=== PATIENT | male | born 1950 | race Caucasian/White ===

== ENCOUNTER 2017-07-01 18:27 | Emergency (ER) | payer OTHER ==
[~2017-07-01] VITALS: Ht 174 cm; Wt 128.6 kg
[~2017-07-01 18:27] MED LIST: ALLO100T57 PO; ASPCH81X NG; ATOR-24 PO; CITA40TA4 PO; CLOP1TAB5 PO; CRD200 PO; EFF/375 PO; HYDR-4715 PO; INSUINJ4 SC; METO1TAB66 PO; NVLGI SC; PRLSR20 PO
[2017-07-01 18:35] VITALS: TEMP 36.5; Ht 174 cm; Wt 128.6 kg
--- NOTE | 2017-07-01 19:57 | EMERGENCY ROOM VISIT NOTE ---
History Report prepared by Lluvia: Gm Ruth Under the Supervision of: Dr. Farida Alejandro D.O. First contact with patient: 19:13 Chief Complaint: HYPERGLYCEMIA Stated Complaint: HIGH SUGAR Nursing Triage Summary: "I'm not steady on my feet and my sugar is out of wack. My sugar was 214 an hour ago." per pt. History of Present Illness The patient is a 66 year old male who presents to the Emergency Room with complaints of intermittent hyperglycemia occurring for about a month. The patient was feeling woozy, and he checked his blood sugar, and it was 214 about an hour ago. He states that it then went down to 184. He states that sometimes his blood sugar occasionally gets up to 400s, and he states that he might be cheating on his diabetic diet. The patient states that he takes insulin shots for type 2 diabetes. He additionally states that he got a pneumonia shot today in the doctors office, and they did not check his sugars. The patient additionally states that he has COPD, and he wears a mask to sleep. He additionally states that next Tuesday he is going to be getting a breathing test and CT scan for a lung infection. The patient states that he has not been coughing up very much, and he states that a couple days ago he was having some chest pain. The patient also states that he has abdominal pain, and he is having leg swelling. Pt denies headache, change in vision, fevers, shortness of breath, nausea, vomiting, diarrhea, pain with urination, and melena. Source of History: patient Onset: a month Position: other (global) Quality: other (intermittent) Timing: intermittent Associated Symptoms: + chest pain, + abdominal pain Review of Systems See HPI for pertinent positives & negatives. A total of 10 systems reviewed and were otherwise negative. Past Medical & Surgical Medical Problems: (1) Diabetes (2) Hypertension Social History Smoking Status: Never Smoker Drug Use: other Marital Status: in relationship Current/Historical Medications Scheduled Allopurinol (Zyloprim), 100 MG PO UD Aspirin (Aspirin Chewable), 81 MG NG QAM Atorvastatin (Lipitor), 80 MG PO QAM Citalopram Hydrobromide (Citalopram Hydrobromide), 40 MG PO DAILY Clopidogrel Bisulfate (Plavix), 75 MG PO QAM Hydralazine Hcl (Apresoline), 10 MG PO TID Insulin Aspart (Novolog), 0 SC AC Insulin Glargine (Lantus Solostar Pen), 35 UNIT SC QAM Insulin Glargine (Lantus Solostar Pen), 20 UNIT SC PM Metoprolol Succinate (Toprol Xl), 200 MG PO DAILY Omeprazole (Prilosec), 20 MG PO DAILY Venlafaxine Hcl (Effexor), 37.5 MG PO DAILY [Spr328], 400 MG PO DAILY Allergies Coded Allergies: Morphine (Verified Adverse Reaction, Unknown, INTOLERANCE - UNCLEAR RXN, ) No Known Allergies (Verified , NONE, 03/04/09) Physical Exam Vital Signs Date Time Temp Pulse Resp B/P (MAP) Pulse Ox O2 Delivery O2 Flow Rate FiO2 07/02/17 00:24 74 20 182/105 94 07/01/17 23:32 70 20 175/105 93 Room Air 07/01/17 22:26 72 18 182/93 95 Room Air 72 159/93 74 182/89 07/01/17 20:24 71 18 167/81 94 07/01/17 18:35 36.5 73 20 185/97 94 Room Air Physical Exam GENERAL: alert, well appearing, well nourished, no distress, non-toxic EYE EXAM: normal conjunctiva, PERRL and EOM's grossly intact OROPHARYNX: no exudate, no erythema, lips, buccal mucosa, and tongue normal and mucous membranes are dry NECK: supple, no nuchal rigidity, no adenopathy, non-tender LUNGS: Clear to auscultation. Normal chest wall mechanics HEART: no murmurs, S1 normal and S2 normal ABDOMEN: obese abdomen soft, non-tender, normo-active bowel sounds, no masses, no rebound or guarding. BACK: Back is symmetrical on inspection and there is no deformity, no midline tenderness, no CVA tenderness. SKIN: no rashes and no bruising UPPER EXTREMITIES: upper extremities are grossly normal. LOWER EXTREMITIES: 1+ bilateral lower extremity edema. NEURO EXAM: Normal sensorium, cranial nerves II-XII grossly intact, normal speech, no gross weakness of arms, no gross weakness of legs. Gross sensation intact. Medical Decision & Procedures ER Provider Diagnostic Interpretation: Radiology results have been interpreted by the radiologist and reviewed by me. CHEST ONE VIEW PORTABLE CLINICAL HISTORY: cough, chest pain COMPARISON STUDY: 11/08/2013 FINDINGS: Moderate cardiomegaly. Median sternotomy. Chronic elevation right hemidiaphragm. Mild atelectasis right base. IMPRESSION: Moderate cardiomegaly. Mild atelectasis right base. The above report was generated using voice recognition software. It may contain grammatical, syntax or spelling errors. Electronically signed by: Adebayo Dia M.D. 07/01/2017 8:15 PM Dictated Date/Time: 07/01/2017 8:14 PM HEAD WITHOUT CONTRAST (CT) CT DOSE: 614.27 mGy.cm HISTORY: Mental status change weakness TECHNIQUE: Multiaxial CT images of the head were performed without the use of intravenous contrast. A dose lowering technique was utilized adhering to the principles of ALARA. Comparison: None. Findings: The paranasal sinuses and mastoid air cells are clear. The calvarium and skull base are intact. The ventricles and sulci are within normal limits. There is no mass, hematoma, midline shift, or acute infarct. Mild age-related atrophy and chronic small vessel change Impression: No acute intracranial abnormality. The above report was generated using voice recognition software. It may contain grammatical, syntax or spelling errors. Electronically signed by: Adebayo Dia M.D. 07/01/2017 10:25 PM Dictated Date/Time: 07/01/2017 10:25 PM Laboratory Results 07/01/17 20:04 Red Blood Count 4.62, Mean Corpuscular Volume 90.0, Mean Corpuscular Hemoglobin 29.9, Mean Corpuscular Hemoglobin Concent 33.2, Mean Platelet Volume 10.9, Neutrophils (%) (Auto) 58.6, Lymphocytes (%) (Auto) 30.2, Monocytes (%) (Auto) 9.0, Eosinophils (%) (Auto) 1.6, Basophils (%) (Auto) 0.4, Neutrophils # (Auto) 4.72, Lymphocytes # (Auto) 2.44, Monocytes # (Auto) 0.73, Eosinophils # (Auto) 0.13, Basophils # (Auto) 0.03 07/01/17 20:04 Test 07/01/17 18:45 07/01/17 20:04 07/01/17 23:05 Bedside Glucose 179 mg/dl (70-99) White Blood Count 8.07 K/uL (4.8-10.8) Red Blood Count 4.62 M/uL (4.7-6.1) Hemoglobin 13.8 g/dL (14.0-18.0) Hematocrit 41.6 % (42-52) Mean Corpuscular Volume 90.0 fL (80-100) Mean Corpuscular Hemoglobin 29.9 pg (25-34) Mean Corpuscular Hemoglobin Concent 33.2 g/dl (32-36) Platelet Count 165 K/uL (130-400) Mean Platelet Volume 10.9 fL (7.4-10.4) Neutrophils (%) (Auto) 58.6 % Lymphocytes (%) (Auto) 30.2 % Monocytes (%) (Auto) 9.0 % Eosinophils (%) (Auto) 1.6 % Basophils (%) (Auto) 0.4 % Neutrophils # (Auto) 4.72 K/uL (1.4-6.5) Lymphocytes # (Auto) 2.44 K/uL (1.2-3.4) Monocytes # (Auto) 0.73 K/uL (0.11-0.59) Eosinophils # (Auto) 0.13 K/uL (0-0.5) Basophils # (Auto) 0.03 K/uL (0-0.2) RDW Standard Deviation 45.2 fL (36.4-46.3) RDW Coefficient of Variation 13.8 % (11.5-14.5) Immature Granulocyte % (Auto) 0.2 % Immature Granulocyte # (Auto) 0.02 K/uL (0.00-0.02) Anion Gap 8.0 mmol/L (3-11) Est Creatinine Clear Calc Drug Dose 60.7 ml/min Estimated GFR () 51.6 Estimated GFR (Non- 44.5 BUN/Creatinine Ratio 15.4 (10-20) Lactic Acid Level 1.4 mmol/L (0.4-2.0) Calcium Level 8.2 mg/dl (8.5-10.1) Total Bilirubin 0.7 mg/dl (0.2-1) Aspartate Amino Transf (AST/SGOT) 18 U/L (15-37) Alanine Aminotransferase (ALT/SGPT) 21 U/L (12-78) Alkaline Phosphatase 120 U/L (45-117) Pro-B-Type Natriuretic Peptide 580 pg/ml (0-900) Total Protein 6.9 gm/dl (6.4-8.2) Albumin 3.6 gm/dl (3.4-5.0) Globulin 3.3 gm/dl (2.5-4.0) Albumin/Globulin Ratio 1.1 (0.9-2) Lipase 169 U/L (73-393) Thyroid Stimulating Hormone (TSH) 2.320 uIu/ml (0.300-4.500) Troponin I 0.021 ng/ml (0-0.045) Laboratory results per my review. Medications Administered Medications (Trade) Dose Ordered Sig/Den Route Start Time Stop Time Status Last Admin Dose Admin Potassium Chloride (Klor-Con M10) 40 meq NOW STAT PO 07/01/17 22:50 07/01/17 22:51 DC 07/01/17 23:35 40 MEQ ECG Indication: other (hyperglycemia) Rate (beats per minute): 69 Rhythm: sinus rhythm Findings: 1st degree AV block, T-wave inversion (1 and AVL), no ectopy Comparison ECG Date: 11/05/13 Change: T wave inversions are new ED Course 1914: The patient was evaluated in room C1. A complete history and physical exam was performed. 2146: I reevaluated the patient, and he states that he did not have any chest pain today. Also, he is unsure if he has ever been told that he had an abnormal EKG. He states that he had an OH in 2013, and he had stents in, and he had a valve replaced, though he is unsure which one. 0: Potassium Chloride 40meq PO 0010: Upon reevaluation, the patient is feeling better. I discussed the findings and the treatment plan with the patient. Discussed admission for observation as a precaution, however patient would like to return home if possible and follow-up as an outpatient. He verbalizes agreement and understanding of all results and possible differential diagnosis. He was discharged home. Medical Decision Differential diagnosis: Etiologies such as metabolic, infection, hypo/hyperglycemia, electrolyte abnormalities, cardiac sources, intracerebral event, toxicologic, neurologic, as well as others were entertained. Patient with isolated episode of chest pain 2 days ago, none since, however several risk factors. 2 negative troponins here no recurrence while here. Patient was subtle EKG changes compared to prior, however prior EKG was before his heart attack. I suspect given lack of recurrent symptoms and negative enzymes at this is not acute coronary syndrome. Patient here concerned about elevated blood sugars. Upon review of his glucometer readings patient with multiple glucose levels in the 200's and 300s. No evidence of DKA or HHN K. No evidence of occult infectious etiology. Patient admits to being noncompliant with a diabetic diet. Patient states he has recently seen his family doctor medication adjustments were made. Patient with no symptoms here to suggest CVA, however friend at bedside stated patient seemed slightly "woozy " which is part of what prompted them to come the emergency room. Patient with a nonfocal and non-lateralizing neuro exam, CT head negative. Doubt occult CVA. Patient with known chronic kidney disease, however levels appear stable compared to baseline. Patient with hypertension here and history of hypertension, doubt hypertensive emergency/urgency. Discussed with patient close follow-up with family doctor as well as cardiology, discussed symptoms to watch and return for, discussed appearance to a diabetic diet and taking medications as prescribed, discussed frequent checks of his blood sugar at home , discussed adequate hydration, he verbalized understanding of all of this, all questions answered bedside, patient was agreeable with plan. Patient aware he is still at risk for heart attack, stroke, vascular disease including AAA and dissection, infection in light of his morbidities, diet, and overall health. Medication Reconcilliation Current Medication List: was personally reviewed by me Blood Pressure Screening Patient's blood pressure: Elevated blood pressure Blood pressure disposition: Referred to PCP Impression Primary Impression: Hyperglycemia Additional Impressions: CKD (chronic kidney disease) Hypertension Scribe Attestation The scribe's documentation has been prepared under my direction and personally reviewed by me in its entirety. I confirm that the note above accurately reflects all work, treatment, procedures, and medical decision making performed by me. Departure Information Dispostion Home / Self-Care Forms HOME CARE DOCUMENTATION FORM, IMPORTANT VISIT INFORMATION, WORK / SCHOOL INSTRUCTIONS Patient Instructions My [facility] Additional Instructions Please adhere to a diabetic diet. Please take your medicines as prescribed. Please follow-up with your family doctor and have them recheck your blood sugar and glucometer. 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 If you have any recurrent chest pain, develop vomiting, dizziness, trouble breathing, increased leg swelling, cough, fevers, or you have any other new or concerning symptoms, please return to the emergency room. Problem Qualifiers Additional Impressions: CKD (chronic kidney disease) Chronic kidney disease stage: unspecified stage Qualified Codes: N18.9 - Chronic kidney disease, unspecified Hypertension Hypertension type: essential hypertension Qualified Codes: I10 - Essential ( primary) hypertension
--- NOTE | 2017-07-01 20:16 | DIAGNOSTIC IMAGING REPORT ---
CHEST ONE VIEW PORTABLE CLINICAL HISTORY: cough, chest pain COMPARISON STUDY: 11/08/2013 FINDINGS: Moderate cardiomegaly. Median sternotomy. Chronic elevation right hemidiaphragm. Mild atelectasis right base. IMPRESSION: Moderate cardiomegaly. Mild atelectasis right base. The above report was generated using voice recognition software. It may contain grammatical, syntax or spelling errors. Electronically signed by: Adebayo Dia M.D. 07/01/2017 8:15 PM Dictated Date/Time: 07/01/2017 8:14 PM
[2017-07-01 20:20] LABS: BASO % 0.4 %; BASO ABS # 0.03 K/uL (0-0.2); COMPLETE YES; EOS % 1.6 %; HEMATOCRIT 41.6 % (42-52); IG% 0.2 %; LYMPH % 30.2 %; LYMPH ABS # 2.44 K/uL (1.2-3.4); MEAN CORPUSCULAR HEMOGLOBIN 29.9 pg (25-34); MEAN CORPUSCULAR HGB CONC 33.2 g/dl (32-36); MEAN PLATELET VOLUME 10.9 fL (7.4-10.4); NEUT % 58.6 %; PLATELET COUNT 165 K/uL (130-400); RED BLOOD COUNT 4.62 M/uL (4.7-6.1); WHITE BLOOD COUNT 8.07 K/uL (4.8-10.8)
[2017-07-01 20:37] LABS: BUN/CREATININE RATIO 15.4 (10-20); CALCIUM 8.2 mg/dl (8.5-10.1); CREATININE 1.6 mg/dl (0.60-1.40); POTASSIUM 3.3 mmol/L (3.5-5.1)
[2017-07-01 20:48] LABS: ALB/GLOB RATIO 1.1 (0.9-2); THYROID STIMULATING HORMONE 2.32 uIu/ml (0.300-4.500)
--- NOTE | 2017-07-01 22:27 | DIAGNOSTIC IMAGING REPORT ---
HEAD WITHOUT CONTRAST (CT) CT DOSE: 614.27 mGy.cm HISTORY: Mental status change weakness TECHNIQUE: Multiaxial CT images of the head were performed without the use of intravenous contrast. A dose lowering technique was utilized adhering to the principles of ALARA. Comparison: None. Findings: The paranasal sinuses and mastoid air cells are clear. The calvarium and skull base are intact. The ventricles and sulci are within normal limits. There is no mass, hematoma, midline shift, or acute infarct. Mild age-related atrophy and chronic small vessel change Impression: No acute intracranial abnormality. The above report was generated using voice recognition software. It may contain grammatical, syntax or spelling errors. Electronically signed by: Adebayo Dia M.D. 07/01/2017 10:25 PM Dictated Date/Time: 07/01/2017 10:25 PM
[2017-07-01] MEDS ORDERED: POTASSIUM CHLORIDE 10 MEQ TABCR PO STA (22:50)
[2017-07-02 00:24] VITALS: BP 182/105; PULSE 74; O2SAT 94
== END 2017-07-02 00:25 | disposition home or self-care (01) ==
LOC: C.EDB 18:28 → C.EDC 07-02 00:25
DX: E11.65 Type 2 diabetes mellitus with hyperglycemia (principal); N18.9 Chronic kidney disease, unspecified; I12.9 Hypertensive chronic kidney disease with stage 1 through stage 4 chronic kidney disease, or unspecified chronic kidney disease; J44.9 Chronic obstructive pulmonary disease, unspecified; R07.9 Chest pain, unspecified; R10.9 Unspecified abdominal pain; I44.0 Atrioventricular block, first degree; E66.9 Obesity, unspecified; Z79.4 Long term (current) use of insulin; Z79.82 Long term (current) use of aspirin; Z79.899 Other long term (current) drug therapy; I25.2 Old myocardial infarction; Z95.2 Presence of prosthetic heart valve